=== PATIENT | female | born 1965 | race Caucasian/White ===

== ENCOUNTER 2018-04-01 09:45 | Outpatient (CLI) | payer OTHER ==
[~2018-04-01 09:45] MED LIST: PERCOCET 5/3251 TAB PO; POLY119PG PO
== END 2018-04-01 09:58 | disposition home or self-care (01) ==
LOC: RAD 09:45
DX: R07.0 Pain in throat (principal)

== ENCOUNTER 2020-08-07 11:45 | Outpatient (CLI) | payer OTHER | END 2020-08-07 11:56 | disposition home or self-care (01) | LOC: MAMO-SONO 11:45 | PROVIDERS: ATTEND Internal Medicine Endocrinology, Diabetes & Metabolism | DX: E04.2 Nontoxic multinodular goiter (principal); N60.29 Fibroadenosis of unspecified breast ==